=== PATIENT | female | born 1960 | race Asian ===

== ENCOUNTER → 2020-05-03 11:55 | Outpatient (CLI) | payer OTHER, SELFPAY ==
[2020-05-04 20:10] LABS: COVID19 Sendout Not Detected (Not Detect)
== END ==
PROVIDERS: Visit Provider Physician Assistant
DX: Z11.59 Encounter for screening for other viral diseases (principal)
CPT/HCPCS: 87635

== ENCOUNTER 2020-05-06 13:14 | Day surgery (SDC) | payer OTHER, SELFPAY ==
[2020-05-06] VITALS (12 sets, daily range): BP systolic 89–120; BP diastolic 48–74; PULSE 50–79; RESP 12–24; TEMP 35.7–36.5; O2SAT 98–100; BMI 18.1
--- NOTE | 2020-05-06 | PATH_ITS ---
[facility] Accession Number: [id number] . 01 Material submitted: . PART A: colon - BIOPSY OF CECUM PART B: colon - TRANSVERSE COLON POLYP PART C: colon - SIGMOID COLON POLYP . 01 Clinical history: . [place] A: R/O INFLAMMATORY BOWEL DISEASE . 02 Diagnosis: A. Cecum, Biopsy: Mildly active collitis. Please see comment. Negative for granulomatous dysplasia and malignancy. . B. Transverse Colon, Polyp, Biopsy: Tubular adenoma. . C. Sigmoid Colon, Polyp, Biopsy: Tubular adenoma. [facility] 05/13/2020 1532 Local . 02 Comment: A. The cecal biopsies show patchy mild neutrophilic cryptitis and increased lymphocytes and plasma cells in the lamina propria without branched crypt architecture. No obvious viral cytopathic effects or parasitic organisms are identified. The differential diagnosis includes infection, medication related mucosal injury, trauma/prolapse, and idiopathic inflammatory bowel disease. . 02 Electronically signed: . Huong Alberto MD, Pathologist NPI- [id number] . 01 Gross description: . A. Received in formalin, labeled cecum, and consists of three joyce fragments of soft tissue measuring 0.4 x 0.3 x 0.2 cm in aggregate. The specimen is entirely submitted in cassette A1. B. Received in formalin, labeled transverse colon polyp, and consists of two joyce fragments of soft tissue measuring 0.6 x 0.5 x 0.2 cm in aggregate. The specimen is entirely submitted in cassette B1. C. Received in formalin, labeled sigmoid colon polyp, and consists of a 0.3 x 0.2 x 0.2 cm joyce fragment of soft tissue, which his entirely submitted in cassette C1. ([id number]) /MRV 05/07/2020 1611 Local . 02 Microscopic: . A. A CMV immunohistochemical stain was performed to evaluate for CMV antigen and is negative. The control stain showed appropriate reactivity. A trichrome stain was performed to evaluate the subepithelial collagen layer and highlights a normal subepithelial collagen layer. The control stain showed appropriate reactivity. . * This test was developed and its performance characteristics determined by [facility]. It has not been cleared or approved by the U.S. Food and Drug Administration. The FDA has determined that such clearance or approval is not necessary. This test is used for clinical purposes. It should not be regarded as investigational or for research. . 02 Pathologist provided ICD-10: K62.5 . 02 CPT . 234074, 904711, 123731, 142120, Q15444 Performed at: 01 [facility] [address] [id number] MD Mo Mendez MD Phone: [phone] Performed at: 02 [facility] [address] [place], [place] [id number] MD Huong Alberto MD Phone: [phone]
[2020-05-06] MEDS: SODIUM CHLORIDE 0.9% 1,000 ML 70 ML IV (14:11)
--- NOTE | 2020-05-06 14:55 | PM.HP.1 ---
History of Present Illness History of Present Illness Date Patient Seen: 05/06/20 Time Patient Seen: 14:50 Chief complaint: SDC Narrative: Patient is a very pleasant 60-year-old female presented for colonoscopy. She was last evaluated in the office on December 02, 2023 persistent rectal bleeding. She also has a known history of colon polyps. Her last colonoscopy was in 2017. Patient History Family & Social History Social History: household members spouse Tobacco & Substance use: Smoking Status Never smoker alcohol intake never Substance Use Type does not use Meds Home Medications and Allergies Home Medications Medication Instructions Recorded Confirmed Type No Known Home Medications 05/06/20 05/06/20 History Allergies Allergy/AdvReac Type Severity Reaction Status Date / Time No Known Drug Allergies Allergy Verified 05/06/20 14:04 Review of Systems Review of Systems ROS: Yes All systems reviewed with the patient and are negative except as otherwise documented Exam Vital Signs (past 8 hours): - 05/06/20 14:05 Temperature 96.9 F L Pulse Rate 79 Respiratory Rate 16 Blood Pressure 120/74 Pulse Oximetry 98 Oxygen Delivery Method Room Air Const General: cooperative, healthy appearing, comfortable, well developed and well groomed Nutritional Appearance: thin Orientation: alert, awake and oriented x3 HENMT Head: normocephalic and atraumatic Resp Effort & Inspection: normal respiratory effort and able to speak in complete sentences Auscultation: clear to auscultation bilaterally Cardio Rate: regular rate Rhythm: regular rhythm Heart Sounds: S1 normal and S2 normal GI Palpation: soft Auscultation: normal bowel sounds Extrem Right lower extremity: no edema Left lower extremity: no edema Assessment & Plan Assessment & Plan narrative: 1. Rectal bleeding 2. History of colon polyps, last colonoscopy 2017 Colonoscopy today, further recommendations to follow
[2020-05-06] MEDS: fentaNYL 250 MCG/5 ML INJ IV (15:04)
[2020-05-06] MEDS: MIDAZOLAM 5 MG/5 ML VIAL IV (15:04)
--- NOTE | 2020-05-06 15:26 | PM.OP.ENDO ---
Operative Date/Time/Diagnoses Date of procedure: 05/06/20 Time of procedure: 15:06 Procedure Notes Procedure in detail: Surgeon: Farnaz Aguilar DO Procedure: Colonoscopy with biopsy and polypectomy Preoperative diagnosis: 1. Rectal bleeding 2. Personal history colon polyps, last colonoscopy 2016 Postoperative diagnosis: 1. Mild erythema in the cecum, biopsy 2. 3 mm transverse colon polyp 3. 3 mm sigmoid colon polyp 4. Grade 1-2 internal hemorrhoids Medications: Conscious sedation using 3 mg IV of Midazolam and 75 mcg IV of Fentanyl Preanesthesia Assessment An H and P was performed/updated and the Px?s ASA class is 2. The procedure was discussed in detail with the patient. The potential risks and complications including infection, bleeding, missed lesions, perforation, need for surgery in case of perforation, prolonged hospital stay, and were explained. A brief question and answer period was allotted and once all questions were answered, informed consent was obtained. The patient was brought back to the procedure room and placed on standard monitoring. The patient?s vital signs were monitored continuously throughout the entire procedure. Prior to starting, a timeout was performed to confirm the patient?s identity, allergies, medications, and procedure. Procedure in detail The patient was placed in left lateral decubitus position and once adequate sedation was obtained a SHELBIE was performed. The digital rectal examination did not reveal any palpable lesions. The tip of the colonoscope was placed in the anal canal and advanced without difficulty all the way to the cecum which was identified by the appendiceal orifice and the ileocecal valve. Careful examination of all whitehead of the colon was performed with irrigation of any residual stool. Second pass in the ascending was completed. -Mild erythema localized in the cecum, biopsy -rule out inflammatory bowel disease -3 mm transverse colon polyp -removed with cold forceps -3 mm sigmoid colon polyp -removed with cold forceps -Grade 1-2 internal hemorrhoids noted on retroflexion The patient tolerated the procedure well and will be brought back to the recovery area to be discharged once criteria are met. The prep was judged to be good/excellent and adequate to identify polyps less than 5 mm. The withdrawal time was 7min. The total physician intraservice time was 14min. Complications There were no complications and estimated blood loss was minimal. Recommendations: Resume previous diet Continue outPx medications Follow up pathology results Repeat colonoscopy will be determined based on pathology results Office follow up if persistent symptoms An emergency contact number was given to the patient for any complications related to the procedure
== END 2020-05-06 17:00 | disposition home or self-care (01) ==
PROVIDERS: PCP General Practice; Referring Provider General Practice; Visit Provider Student in an Organized Health Care Education/Training Program
PROC: 0DJD8ZZ Inspection of Lower Intestinal Tract, Via Natural or Artificial Opening Endoscopic (ICD-10-PCS; CPT 45378; principal; 2020-05-06 14:30)
DX: K52.9 Noninfective gastroenteritis and colitis, unspecified (principal); L53.8 Other specified erythematous conditions; K64.0 First degree hemorrhoids; D12.3 Benign neoplasm of transverse colon; D12.5 Benign neoplasm of sigmoid colon
CPT/HCPCS: 45380; J2250; J3010

== ENCOUNTER → 2020-11-16 15:05 | Outpatient (CLI) | payer OTHER, SELFPAY ==
--- NOTE | 2020-11-16 | DI.MG.S_ITS ---
BILATERAL DIGITAL SCREENING MAMMOGRAM 3D/2D WITH CAD: 11/16/2020 CLINICAL: Routine screening. Comparison is made to exams dated: 08/11/2016 mammogram, 10/21/2013 mammogram, and 08/18/2016 mammogram - outside location. The tissue of both breasts is heterogeneously dense. This may lower the sensitivity of mammography. Current study was also evaluated with a Computer Aided Detection (CAD) system. No significant masses, calcifications, or other findings are seen in either breast. There has been no significant interval change. IMPRESSION: NEGATIVE There is no mammographic evidence of malignancy. A 1 year screening mammogram is recommended. This exam was interpreted at Station ID: [id number]. NOTE: For mammograms, a report in lay terms will be sent to the patient. Approximately 15% of breast malignancies will not be visualized mammographically. In the management of a palpable breast mass, a negative mammogram must not discourage biopsy of a clinically suspicious lesion. Electronically Signed By: Rick banda/kartik:11/16/2020 16:27:51 letter sent: Normal Exam ACR BI-RADS Category 1: Negative [id number]
== END ==
PROVIDERS: PCP General Practice; Referring Provider General Practice; Visit Provider General Practice
DX: Z12.31 Encounter for screening mammogram for malignant neoplasm of breast (principal)
CPT/HCPCS: 77063; 77067

== ENCOUNTER 2022-02-09 10:52 | Day surgery (SDC) | payer OTHER, SELFPAY ==
--- NOTE | 2022-02-09 | PATH_ITS ---
[facility] Accession Number: [id number] . 01 Material submitted: . PART A: gastrointestinal site - GASTRIC BIOPSIES PART B: rectosigmoid junction - RECTO-SIGMOID BIOPSY . 01 Clinical history: . A: R/O H.PYLORI, HX OF GASTRIC PAIN B: R/O COLITIS . 01 Diagnosis: A. Stomach, Biopsies: Gastric body mucosa with no diagnostic abnormality. No evidence of Helicobacter organisms on H/E stain. Negative for intestinal metaplasia. Negative for dysplasia or malignancy. . B. Rectosigmoid Colon, Biopsy: Moderately active colitis with crypt architectural distortion; please see comment. Negative for granulomas, dysplasia, or malignancy. [facility] 02/11/2022 1401 Local . 01 Comment: B. The findings in the rectosigmoid colon biopsy raise a differential diagnosis including infection, drug/toxin-induced injury, and, in the appropriate clinical setting, idiopathic inflammatory bowel disease. . 01 Electronically signed: . Josse Harris MD, PhD, Pathologist NPI- [id number] . 01 Gross description: . Part A: GASTRIC BIOPSIES: Received in formalin is 1 fragment(s) of joyce, soft tissue measuring 0.3 x 0.2 x 0.2 cm submitted entirely in 1 cassette(s) Part B: RECTO-SIGMOID BIOPSY: Received in formalin are 4 fragment(s) of joyce, soft tissue measuring 0.2 x 0.2 x 0.2 cm to 0.3 x 0.2 x 0.2 cm submitted entirely in 1 cassette(s) /[facility] 02/10/2022 1848 Local . 01 Pathologist provided ICD-10: K62.5, R10.13, K52.9 . 01 CPT . 613366, 018681 Specimen Comment: A courtesy copy of this report has been sent to [phone] Performed at: 01 [facility] [address], [place], [place] [id number] MD Mo Mendez MD Phone: [phone]
[2022-02-09 11:16] VITALS: BMI 18.1
[2022-02-09 11:26] VITALS: BP 121/72; PULSE 62; RESP 16; TEMP 36.5; O2SAT 100
[2022-02-09 11:41] LABS: COVID19 -Nasal RAPID Negative (Negative)
[2022-02-09] MEDS: SODIUM CHLORIDE 0.9% 1,000 ML 84 ML IV (12:03)
--- NOTE | 2022-02-09 12:50 | PM.HP.1 ---
History of Present Illness History of Present Illness Date Patient Seen: 02/09/22 Chief complaint: SDC Narrative: Severe central abdominal pain with previous colonoscopy showing adenomatous colon polyps and possible colitis. Also on nonsteroidal anti-inflammatories. Rule out peptic disease Patient History Family & Social History Social History: household members spouse Tobacco & Substance use: Smoking Status Never smoker alcohol intake never alcohol intake frequency other Substance Use Type does not use Meds Home Medications and Allergies Home Medications Medication Instructions Recorded Confirmed Type No Known Home Medications 05/06/20 02/09/22 History Allergies Allergy/AdvReac Type Severity Reaction Status Date / Time No Known Drug Allergies Allergy Verified 02/09/22 11:06 Exam Vital Signs (past 8 hours): - 02/09/22 11:26 Temperature 97.7 F Pulse Rate 62 Respiratory Rate 16 Blood Pressure 121/72 Pulse Oximetry 100 Oxygen Delivery Method Room Air Oxygen Delivery Method Room Air Narrative Exam Narrative: Oropharynx free of lesions Chest clear to auscultation percussion Cardiac exam reveals no S3 or murmur Objective Labs Labs: Laboratory Results - last 24 hr 02/09/22 11:00 SARS-CoV-2 (PCR) Negative Assessment & Plan Assessment & Plan narrative: History of adenomatous colon polyps and possible colitis with chronic abdominal pain though intermittent rule out peptic disease with upper endoscopy rule out polyps colonoscopy. Risks, benefits, alternatives have been explained. Time Spent With Patient Critical Care time: I spent a total of [] minutes of critical care time on this patient's care today; this time is exclusive of procedural time.
--- NOTE | 2022-02-09 12:53 | PM.OP.EC ---
Operative Date/Time/Diagnoses Date of procedure: 02/09/22 Pre-op diagnosis: See indication and findings Procedure & Clinicians Study performed: EGD and colonoscopy Indications: Abdominal pain and history of adenomatous colon polyps Surgeon: Dejon Salas Procedure Notes Procedure in detail: After informed consent was obtained the patient was placed in left lateral decubitus position. The video upper scope was introduced into the oropharynx and with the patient's help swallowed into the esophagus. The esophagus stomach and duodenum were carefully examined. On withdrawal retroflexed view the GE junction was performed. The scope was removed. The patient tolerated procedure well. The scope was then substituted with the colonoscope and the patient turned. The colonoscope was placed the rectum slowly advanced cecum. Preparation was good. On slow withdrawal mucosa was carefully examined. The scope was removed. The patient tolerated procedure well. Blood loss none Complications none Sedation mac Findings EGD 1. Normal esophagus 2. Patchy antral and pre-pyloric erythema biopsied to rule out Helicobacter 3. Normal duodenal bulb and sweep Colonoscopy 1. Rectosigmoid colitis in the 1st 20-25 cm. This consisted of very friable mucosa with multiple small aphthous ulcers. Biopsies were taken. 2. 5 mm polyp seen initially and 35 cm however could not relocate later due to scope issues and inability to hold insufflated air. This can be addressed at the next colonoscopy in 1-3 years 3. Otherwise negative colonoscopy to cecum Patient should follow up Dr. Murry 1-2 weeks to go over biopsies and further care.
[2022-02-09 13:47] VITALS: BP 119/50; PULSE 79; RESP 15; TEMP 36.7; O2SAT 97
[2022-02-09 13:52] VITALS: BP 112/69; PULSE 78; RESP 13; O2SAT 100
[2022-02-09 13:57] VITALS: BP 111/75; PULSE 77; RESP 16; O2SAT 97
[2022-02-09 14:02] VITALS: BP 118/71; PULSE 70; RESP 16; TEMP 36.7; O2SAT 98
[2022-02-09 14:14] VITALS: BP 122/74; PULSE 65; RESP 16; O2SAT 100
== END 2022-02-09 14:21 | disposition home or self-care (01) ==
PROVIDERS: PCP Physician Assistant; Referring Provider Internal Medicine Gastroenterology; Visit Provider Internal Medicine Gastroenterology
PROC: 0DJ08ZZ Inspection of Upper Intestinal Tract, Via Natural or Artificial Opening Endoscopic (ICD-10-PCS; CPT 43235; principal; 2022-02-09 13:00)
PROC: 0DJD8ZZ Inspection of Lower Intestinal Tract, Via Natural or Artificial Opening Endoscopic (ICD-10-PCS; CPT 45378; 2022-02-09 13:00)
DX: K62.5 Hemorrhage of anus and rectum (principal); Z20.822 Contact with and (suspected) exposure to COVID-19; K52.9 Noninfective gastroenteritis and colitis, unspecified; K63.3 Ulcer of intestine
CPT/HCPCS: 45380; 43239; 87635; C9803; J2704; J3010

== ENCOUNTER 2022-12-07 12:20 | Day surgery (SDC) | payer OTHER, SELFPAY ==
[2022-12-07] VITALS (9 sets, daily range): BP systolic 70–122; BP diastolic 38–82; PULSE 56–81; RESP 12–18; TEMP 36.1–36.2; O2SAT 94–100; BMI 18.1
--- NOTE | 2022-12-07 14:00 | PM.HP.1 ---
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 She has not gone back on any PFSH Social History household members: spouse Smoking Status: Never smoker alcohol intake: never Meds Home Medications and Allergies Home Medications Medication Instructions Recorded Confirmed Type mesalamine 2 tab PO DAILY 12/07/22 12/07/22 History Allergies Allergy/AdvReac Type Severity Reaction Status Date / Time No Known Drug Allergies Allergy Verified 02/09/22 11:06 Exam Vital Signs (past 8 hours): - 12/07/22 13:05 Temperature 97.0 F L Pulse Rate 81 Respiratory Rate 17 Blood Pressure 122/82 Pulse Oximetry 98 Oxygen Delivery Method Room Air Oxygen Delivery Method Room Air Narrative Exam Narrative: Oropharynx free of lesions Chest clear to auscultation percussion Cardiac exam reveals no S3 or murmur Assessment & Plan Assessment & Plan narrative: Ulcerative proctosigmoiditis with new symptoms. Rule out extension of disease. Rule out complete mucosal healing. Risks benefits alternatives have been explained.
--- NOTE | 2022-12-07 14:02 | P.OP.COLON_ITS ---
Operative Date/Time/Diagnoses Date of procedure: 12/07/22 Pre-op diagnosis: See indication and findings Procedure & Clinicians Study performed: Colonoscopy Indications: Abdominal pain and history of ulcerative proctosigmoiditis Procedure Notes Procedure in detail: After informed consent was obtained the patient was placed in left lateral d ecubitus position. The video colonoscope was introduced the rectum slowly advanced cecum. Preparation was good. On slow withdrawal mucosa was carefully examined. The scope was removed. Patient tolerated procedure well. Blood loss none Complications none Findings 1. Completely normal colonoscopy to cecum. Complete mucosal healing noted. I would suggest that patient stay on her mesalamine at current doses. For right upper quadrant pain continues to bother her other sources should be considered.
== END 2022-12-07 15:26 | disposition home or self-care (01) ==
PROVIDERS: PCP Physician Assistant; Referring Provider Internal Medicine Gastroenterology; Visit Provider Internal Medicine Gastroenterology
PROC: 0DJD8ZZ Inspection of Lower Intestinal Tract, Via Natural or Artificial Opening Endoscopic (ICD-10-PCS; CPT 45378; principal; 2022-12-07 13:30)
DX: R10.9 Unspecified abdominal pain (principal); Z87.19 Personal history of other diseases of the digestive system
CPT/HCPCS: 45378; J2704

== ENCOUNTER 2024-03-15 23:30 | Emergency (ER) | payer OTHER, SELFPAY ==
[2024-03-15 23:32] VITALS: BP 145/85; PULSE 78; RESP 16; TEMP 36.6; O2SAT 98; BMI 19.8
--- NOTE | 2024-03-15 23:51 | DI.CT.S_ITS ---
PROCEDURE: CT HEAD/BRAIN WO CON INDICATIONS: ELENA dizzy x3 weeks TECHNIQUE: Noncontrast 4.5 mm thick angled axial sections acquired from the foramen magnum to the vertex, with coronal and sagittal reformats. For radiation dose reduction, the following was used: automated exposure control, adjustment of mA and/or kV according to patient size. COMPARISON: None. FINDINGS: Image quality: Diagnostic. CSF spaces: Basal cisterns are patent. No extra-axial fluid collections. The ventricles are symmetric in size and shape. Brain: No intracranial bleeds or masses. There is cerebral volume loss for age, with resultant ventricular and sulcal prominence. There are periventricular and deep white matter chronic small vessel ischemic changes. There is intracranial internal carotid artery atherosclerosis. Skull and face: Calvarium and visualized facial bones appear intact, without suspicious lesions. Sinuses: Visualized sinuses and mastoids are clear. IMPRESSION: No acute intracranial pathology. No discrepancies from preliminary reading. Dictated by: Oral Bowen M.D. on 03/16/2024 at 7:36 Approved by: Oral Bowen M.D. on 03/16/2024 at 7:36
--- NOTE | 2024-03-15 23:52 | DI.CT.S_ITS ---
PROCEDURE: CT ANGIO HEAD AND NECK INDICATIONS: headache, dizzy TECHNIQUE: After the administration of intravenous contrast, 1 mm thick sections acquired from the aortic arch through the [place]. 3-dimensional ufntmqj-udamrfzpe-dgnxxapdxa (MIP) and/or volume rendering reformats were acquired of the central intracranial vasculature and neck separately. For radiation dose reduction, the following was used: automated exposure control, adjustment of mA and/or kV according to patient size. COMPARISON: None. FINDINGS: Image quality: Diagnostic. BRAIN: CSF spaces: Ventricles are normal in size and shape. Basal cisterns are patent. No extra-axial fluid collections. Brain: No significant abnormality of the brain can be seen. Skull and face: Calvarium and facial bones appear intact, without suspicious lesions. Orbits appear normal. Sinuses: Sinuses and mastoids are clear. HEAD CT ANGIOGRAPHY: Anterior circulation: Intracranial internal carotid arteries are normal in size and flow. The flow within the paired anterior cerebral arteries is normal and symmetric. The flow within the middle cerebral arteries is normal and symmetric. The anterior communicating artery is seen. No aneurysms are seen. Posterior circulation: Visualized portions of the vertebral arteries demonstrate normal caliber, and join to form a normal appearing basilar artery. Flow within the posterior cerebral arteries is normal and symmetric. No aneurysms are seen. NECK CT ANGIOGRAPHY: Carotid system: The great vessels demonstrate a conventional anatomy as they arise from the aortic arch. The origins of the common carotid arteries appear patent. The common carotid arteries demonstrate normal caliber and courses. The bifurcation regions are both widely patent. The internal carotid arteries demonstrate normal calibers and courses. Posterior circulation: The origins of the vertebral arteries both appear widely patent. The more superior extracranial portions of both vertebral arteries also demonstrate normal courses and calibers. They join to form a normal appearing basilar artery. Soft tissues: Visualized neck soft tissues demonstrate no suspicious abnormalities. There is prior left thyroidectomy with nodular appearance of right thyroid lobe. Bones: No suspicious bony lesions. Visualized cervical spine appears normally aligned. IMPRESSION: 1. No hemodynamically significant stenosis or aneurysm is seen in the intracranial circulation. No area of abnormal intracranial enhancement. 2. No hemodynamically significant stenosis or aneurysm is seen in bilateral neck arteries. 3. Incidental findings as above. No significant discrepancies from preliminary reading. Any quantitative measurements of stenosis were performed using NASCET criteria. Dictated by: Oral Bowen M.D. on 03/16/2024 at 7:36 Approved by: Oral Bowen M.D. on 03/16/2024 at 7:38
[2024-03-16] VITALS (13 sets, daily range): BP systolic 116–172; BP diastolic 65–82; PULSE 55–74; O2SAT 96–100
--- NOTE | 2024-03-16 00:38 | ED_ITS ---
HPI - Headache General Chief Complaint: Headache Stated Complaint: vertigo, headaches Time Seen by Provider: 03/15/24 23:51 Mode of arrival: Family Vehicle History of Present Illness HPI Narrative: 64-year-old female complains of dizziness and global headache for a number of weeks, recently increasing. She feels fairly steady on her feet with her walking however. No focal weakness. Dizziness not necessarily increase or change with isolated head movements or body position movements. No focal weakness. No injury or trauma to her head or face. No fevers or chills. No photophobia. Related Data Home Medications Medication Instructions Recorded Confirmed mesalamine 2 tab PO DAILY 12/07/22 12/07/22 Previous Rx's Medication Instructions Recorded meclizine 25 mg tablet 25 mg PO TID 7 days #21 tabs 03/16/24 Allergies Allergy/AdvReac Type Severity Reaction Status Date / Time No Known Drug Allergies Allergy Verified 02/09/22 11:06 Review of Systems Review of Systems Narrative: see HPI Patient History Social History household members: spouse Smoking Status: Never smoker alcohol intake: never Smoking Status: Never smoker alcohol intake frequency: other Substance Use Type: does not use Exam Narrative Exam Narrative: GENERAL: Well-developed patient, in mild distress. HEAD: Atraumatic. Normocephalic. EYES: Pupils equal round and reactive. Extraocular motions intact. No scleral icterus. No injection or drainage. ENT: Nose without bleeding, purulent drainage. Throat without erythema, tonsillar hypertrophy or exudate. Airway patent. NECK: Trachea midline. Non tender CARDIOVASCULAR: Regular rate and rhythm without murmurs, gallops, or rubs. RESPIRATORY: Clear to auscultation. Breath sounds equal bilaterally. No wheezes, rales, or rhonchi. GASTROINTESTINAL: Abdomen soft, non-tender, nondistended. EXTREMITIES: No edema or joint tenderness. BACK: Nontender without deformity or crepitance. No flank tenderness. NEURO: AOx3. Motor 5/5 upper extremities and lower extremities. Cranial nerves intact. [id number] testing excellent and brisk with no dysmetria. SKIN: No rash or erythema of visible areas Initial Vital Signs Initial Vital Signs: Vital Signs Temperature 97.8 F 03/15/24 23:32 Pulse Rate 78 03/15/24 23:32 Respiratory Rate 16 03/15/24 23:32 Blood Pressure 145/85 H 03/15/24 23:32 Pulse Oximetry 98 03/15/24 23:32 Oxygen Delivery Method Room Air 03/15/24 23:32 Course Orders Ordered: ED Orders 03/15/24 23:51 CT head/brain wo con Stat 03/15/24 23:52 CT angio head and neck Stat CBC Auto Diff [Complete Blood Count AUTO DIFF] Stat CMP [Comprehensive Metabolic Panel] Stat Prothrombin Time INR Stat 03/16/24 00:07 EKG-12 Lead Stat 03/16/24 01:07 Trop I [Troponin I] Stat 03/16/24 04:30 Troponin I Stat Discontinued Medications Diphenhydramine HCl (Diphenhydramine 50 Mg/Ml Vial) 25 mg IV NOW ONE Stop: 03/16/24 00:40 Last Admin: 03/16/24 00:50 Dose: 25 mg Documented By: Sodium Chloride (Normal Saline 0.9%) 1,000 mls @ 500 mls/hr IV BOLUS ONE Stop: 03/16/24 02:12 Last Infusion: 03/16/24 01:59 Dose: Infused Documented By: Admin: 03/16/24 00:39 Dose: 500 mls/hr Documented By: PUSHPA Ondansetron HCl (Ondansetron 4 Mg/2 Ml Inj) 4 mg IV NOW ONE Stop: 03/15/24 23:55 Last Admin: 03/16/24 00:40 Dose: 4 mg Documented By: PUSHPA Prochlorperazine (Prochlorperazine 10 Mg/2 Ml Vial) 5 mg IV NOW ONE Stop: 03/16/24 00:40 Last Admin: 03/16/24 00:50 Dose: 5 mg Documented By: Vital Signs Vital signs: Vital Signs - 8 hr 03/15/24 23:32 03/16/24 00:24 03/16/24 00:30 Temperature 97.8 F Pulse Rate 78 67 62 Respiratory Rate 16 Blood Pressure 145/85 H Pulse Oximetry 98 100 100 Oxygen Delivery Method Room Air 03/16/24 00:41 03/16/24 00:41 03/16/24 00:50 Temperature Pulse Rate 63 74 Respiratory Rate Blood Pressure 172/82 H 172/82 H Pulse Oximetry 100 Oxygen Delivery Method 03/16/24 01:00 03/16/24 01:30 03/16/24 01:32 Temperature Pulse Rate 74 74 Respiratory Rate Blood Pressure 135/75 Pulse Oximetry 100 99 Oxygen Delivery Method Room Air 03/16/24 01:32 03/16/24 02:02 03/16/24 02:02 Temperature Pulse Rate 70 69 Respiratory Rate Blood Pressure 139/72 Pulse Oximetry 99 96 Oxygen Delivery Method 03/16/24 02:30 03/16/24 02:30 03/16/24 04:45 Temperature Pulse Rate 65 65 Respiratory Rate Blood Pressure 117/72 Pulse Oximetry 98 99 Oxygen Delivery Method Room Air 03/16/24 04:45 03/16/24 05:00 03/16/24 05:00 Temperature Pulse Rate 55 L Respiratory Rate Blood Pressure 171/81 H 133/65 Pulse Oximetry 98 Oxygen Delivery Method 03/16/24 05:30 03/16/24 05:30 03/16/24 06:00 Temperature Pulse Rate 58 L 56 L Respiratory Rate Blood Pressure 116/66 Pulse Oximetry 99 99 Oxygen Delivery Method Room Air 03/16/24 06:00 Temperature Pulse Rate Respiratory Rate Blood Pressure 129/67 Pulse Oximetry Oxygen Delivery Method MDM - Headache Lab Data 03/16/24 01:07 03/16/24 01:07 Labs: Lab Results 03/16/24 03/16/24 Range/Units 01:07 04:30 WBC 9.0 (4.5-11.0) X10^3/uL RBC 4.45 (4.0-5.2) X10^6/uL Hgb 13.3 (12.0-16.0) g/dL Hct 38.6 (36-46) % MCV 86.6 (80-100) fL MCH 29.9 (26-34) PG MCHC 34.6 (30-36) % RDW 13.6 (11.6-14.8) % Plt Count 230 (150-400) X10^3/uL Neut % (Auto) 67.7 (50-75) % Lymph % (Auto) 25.8 (25-40) % [place] % (Auto) 4.7 (3-14) % Eos % (Auto) 0.3 L (2-4) % Baso % (Auto) 1.5 (0-2) % Neut # (Auto) 6100 (6829-0197) /uL Lymph # (Auto) 2300 (7020-6483) /uL [place] # (Auto) 400 (0-900) /uL Eos # (Auto) 0 (0-450) /uL Baso # (Auto) 100 (0-100) /uL PT 12.2 (9.4-12.5) SECONDS INR 1.1 (0.9-1.3) Sodium 137 (137-145) mmol/L Potassium 4.3 (3.4-5.1) mmol/L Chloride 105 (98-107) mmol/L Carbon Dioxide 23 (22-32) mmol/L BUN 6 L (7-17) mg/dL Creatinine 0.47 L (0.52-1.04) mg/dL Estimated GFR > 60 (>60) mL/min BUN/Creatinine Ratio 12.8 (6-22) Glucose 91 (80-110) mg/dL Calcium 9.2 (8.4-10.2) mg/dL Total Bilirubin 0.7 (0.2-1.3) mg/dL AST 30 (14-36) IU/L ALT 14 (<35) IU/L Alkaline Phosphatase 79 (38-126) U/L Troponin I < 0.012 0.020 (0.01-0.034) ng/mL Total Protein 7.9 (6.3-8.2) g/dL Albumin 4.5 (3.5-5.0) g/dL Globulin 3.4 (1.7-4.1) g/dL Albumin/Globulin Ratio 1.3 (1.0-2.8) MDM Narrative Medical decision making narrative: 64-year-old with dizziness and headache, nausea. Unremarkable exam, no reproduction dizziness with isolated head movements. No neck or temporal artery area tenderness. CT noncontrast head study ordered, CT angiogram head and neck vessels ordered if GFR favorable, labs are pending at this time. GFR favorable, CTA head and neck vessels also ordered. CT head without contrast. Impressions: ?No acute intracranial abnormality. ? see tele radiology report CT angiogram head vessels. Impressions: ?No acute intracranial abnormality. Normal CTA.? see tele radiology report CT angiogram neck vessels. Impressions: ?Normal CTA of the neck. ? See tele radiology report Interval repeat troponin negative. Trial of oral fluids, trial of ambulation. Patient ambulated well, took oral fluids, feels improved. She does not want to stay for MRI brain imaging or further testing and monitoring. Consider aspirin daily. Follow up with primary care provider. Further workup for now as an outpatient per patient preference. Consider use of meclizine antihistamine to control dizziness symptoms. Further testing and workup as an outpatient for now, return precautions discussed. Critical Care Time Critical Care Time Total Critical Care Time: 31 Attestation: The high probability of a clinically significant, sudden or life threatening deterioration of the [cardiopulmonary, cerebrovascular, neurologic, vestibular] system(s) required my full and direct attention, intervention and personal management. The aggregate critical care time was [31] minutes. This time is in addition to time spent performing reported procedures but includes the following: [x] Data Review and interpretation [x] Patient assessment and monitoring of vital signs [x] Documentation [x] Medication orders and management Discharge Plan Departure Patient Disposition: Home Clinical Impression: Headache, Dizziness Activity Restrictions/Additional Instructions: Ongoing dizziness and headache symptoms, no fever, no injury. CT head tonight showed no acute changes per Radiology reading. CT angiogram of the head and the neck vessels showed no acute changes or narrowing or thrombosis or blockage changes. IV pain medication and antinausea medications given. Your symptoms got better, including your dizziness. You were able to ambulate and walk without difficulty and take oral fluids. Consider further testing such as MRI of the brain, not available now, could be done later today if you were to stay through the weekend, declined for now, but consider in follow up. Consider taking aspirin daily for now. Your symptoms improved with multiple therapies including Benadryl antihistamine. Antihistamines can sometimes help with certain forms of dizziness. Consider use of meclizine oral antihistamine for the next 2 days, prescription sent to your pharmacy. Follow up with your regular doctor on Monday in 2 days. Return earlier to this/nearest emergency department for any change worsening symptoms or any concerns prior Prescriptions: New meclizine 25 mg tablet 25 mg PO TID 7 Days Qty: 21 0RF No Action mesalamine 2 tab PO DAILY Referrals: Tomás Camacho PA-C [Primary Care Provider] - Stand Alone Forms: Patient Portal/API
[2024-03-16] MEDS: SODIUM CHLORIDE 0.9% 1,000 ML 500 ML IV (00:39)
[2024-03-16] MEDS: ONDANSETRON 4 MG/2 ML INJ IV (00:40)
[2024-03-16] MEDS: diphenhydrAMINE 50 MG/ML VIAL 25 MG IV (00:50)
[2024-03-16] MEDS: PROCHLORPERAZINE 10 MG/2 ML VIAL 5 MG IV (00:50)
[2024-03-16 01:24] LABS: Add Manual Diff / Slide Review NO; Basophils Absolute Auto 100 /uL (0-100); Basophils Percent Auto 1.5 % (0-2); Eosinophils Absolute Auto 0 /uL (0-450); Eosinophils Percent Auto 0.3 % (2-4); Hematocrit 38.6 % (36-46); Hemoglobin 13.3 g/dL (12.0-16.0); Lymphocytes Absolute Auto 2300 /uL (1100-4500); Lymphocytes Percent Auto 25.8 % (25-40); Mean Corpuscular HGB Conc 34.6 % (30-36); Mean Corpuscular Hemoglobin 29.9 PG (26-34); Mean Corpuscular Volume 86.6 fL (80-100); Monocytes Absolute Auto 400 /uL (0-900); Monocytes Percent Auto 4.7 % (3-14); Neutrophils Absolute Auto 6100 /uL (1500-7000); Neutrophils Percent Auto 67.7 % (50-75); Platelet Count 230 X10^3/uL (150-400); Red Blood Cell Count 4.45 X10^6/uL (4.0-5.2); Red Cell Distribution Width 13.6 % (11.6-14.8)
[2024-03-16 01:36] LABS: Alanine Aminotransferase 14 IU/L (<35); Albumin 4.5 g/dL (3.5-5.0); Albumin Globulin Ratio 1.3 (1.0-2.8); Alkaline Phosphatase 79 U/L (38-126); Aspartate Aminotransferase 30 IU/L (14-36); BUN Creatinine Ratio 12.8 (6-22); Bilirubin Total 0.7 mg/dL (0.2-1.3); Blood Urea Nitrogen 6 mg/dL (7-17); Calcium 9.2 mg/dL (8.4-10.2); Carbon Dioxide 23 mmol/L (22-32); Chloride 105 mmol/L (98-107); Estimated Glomerular Filt Rate > 60 mL/min (>60); Globulin 3.4 g/dL (1.7-4.1); Glucose 91 mg/dL (80-110); HEMOLYSIS 62 (0-50); Potassium 4.3 mmol/L (3.4-5.1); Sodium 137 mmol/L (137-145); Total Protein 7.9 g/dL (6.3-8.2)
[2024-03-16 01:48] LABS: Troponin I < 0.012 ng/mL (0.01-0.034)
[2024-03-16 03:11] LABS: INR 1.1 (0.9-1.3); Prothrombin Time 12.2 SECONDS (9.4-12.5)
== END 2024-03-16 06:15 | disposition home or self-care (01) ==
PROVIDERS: Emergency Provider Emergency Medicine; PCP Physician Assistant
DX: R42 Dizziness and giddiness (principal); R51.9 Headache, unspecified
CPT/HCPCS: 36415; 70450; 70496; 70498; 80053; 84484; 85025; 85610; 96361; 96374; 96375; 99284; J0780; J1200; J2405; Q9967